=== PATIENT | male | born 1940 | race Caucasian/White ===

== ENCOUNTER 2017-01-15 14:12 | Day surgery (SDC) | payer MEDICARE, BC ==
[2017-01-15] VITALS (8 sets, daily range): BP systolic 131–148; BP diastolic 56–85; PULSE 57–62; TEMP 97.4–98.1
[~2017-01-15] VITALS: Ht 175.3 cm; Wt 107.4 kg
[2017-01-15] MEDS ORDERED: DIABETA 2.5MG2.5 MG PO (15:27)
[2017-01-15] MEDS ORDERED: TOPROL XL 50MG50 MG PO (15:28)
[2017-01-15] MEDS ORDERED: ZOCOR 10MG10 MG PO (15:28)
[2017-01-15] MEDS ORDERED: PRINIVIL5 MG PO (15:28)
[2017-01-15] MEDS ORDERED: ASPIRIN E.C. 8181 MG PO (15:29)
[2017-01-16 00:13] VITALS: BP 119/66; PULSE 61; TEMP 97.8
[2017-01-16 04:57] VITALS: BP 131/52; PULSE 67; TEMP 98.2
[2017-01-16 10:05] VITALS: BP 142/49; PULSE 54; TEMP 98
[2017-01-16 13:36] VITALS: BP 128/60; PULSE 65; TEMP 98.1
== END 2017-01-16 14:50 | disposition home or self-care (01) ==
LOC: SURG 14:12 → SDCO 14:12 → SURG 18:05 → SDCO 01-16 14:50
DX: C67.1 Malignant neoplasm of dome of bladder (principal); N36.2 Urethral caruncle; I25.10 Atherosclerotic heart disease of native coronary artery without angina pectoris; E78.5 Hyperlipidemia, unspecified; I10 Essential (primary) hypertension; E11.9 Type 2 diabetes mellitus without complications; Z95.2 Presence of prosthetic heart valve; Z95.1 Presence of aortocoronary bypass graft; Z77.22 Contact with and (suspected) exposure to environmental tobacco smoke (acute) (chronic)
CPT/HCPCS: OP; A9284; J0690; J1100; J2405; J2704; J3010; J7030; Q9967

== ENCOUNTER 2017-02-12 13:27 | Day surgery (SDC) | payer MEDICARE, BC ==
[~2017-02-12] VITALS: Ht 175.3 cm; Wt 107.7 kg
[~2017-02-12 13:27] MED LIST: ASPIRIN E.C. 8181 MG PO; DIABETA 2.5MG2.5 MG PO; PRINIVIL5 MG PO; TOPROL XL 50MG50 MG PO; ZOCOR 10MG10 MG PO
[2017-02-12 14:43] VITALS: BP 174/62; PULSE 52; TEMP 98.2
[2017-02-12 17:16] VITALS: TEMP 97.5
[2017-02-12 17:27] VITALS: BP 140/68; PULSE 64
== END 2017-02-12 20:00 | disposition home or self-care (01) ==
LOC: SDCO 13:27 → SURG 17:35 → SDCO 20:00
DX: C67.9 Malignant neoplasm of bladder, unspecified (principal); N30.01 Acute cystitis with hematuria; N30.20 Other chronic cystitis without hematuria; I25.10 Atherosclerotic heart disease of native coronary artery without angina pectoris; I10 Essential (primary) hypertension; E73.9 Lactose intolerance, unspecified; E78.5 Hyperlipidemia, unspecified; E11.9 Type 2 diabetes mellitus without complications; Z95.1 Presence of aortocoronary bypass graft; Z79.84 Long term (current) use of oral hypoglycemic drugs; Z86.73 Personal history of transient ischemic attack (TIA), and cerebral infarction without residual deficits; Z83.3 Family history of diabetes mellitus; Z82.49 Family history of ischemic heart disease and other diseases of the circulatory system
CPT/HCPCS: OP; J0690; J1100; J2270; J2405; J2704; J3010; J7030; J7120